=== PATIENT | male | born 1950 | race Caucasian/White ===

== ENCOUNTER → 2021-01-16 | Outpatient (CLI) | payer MEDICARE ==
--- NOTE | 2021-01-23 12:42 | MR ---
EXAMINATION TYPE: MR Prostate wo/w con DATE OF EXAM: 01/16/2021 COMPARISON: None. IMAGE QUALITY: . INDICATION: PSA: ng/ml Recent Biopsy and Date: April 24, 2020. Pathology Report (If Applicable): Adenocarcinoma Prashant score 3+3 = 6 left base, left lateral apex. Minute focus atypical small acinar proliferation left mid and right lateral mid TECHNIQUE: Examination was performed using a 3T MRI without an endorectal coil. Multiparametric imaging was perf ormed with T2 multiplanar sequences, axial diffusion weighted imaging and dynamic contrast enhanced i maging, utilizing 9.5 mL intravenous Gadavist gadolinium contrast. FINDINGS: There is no clinically significant cancer identified. PROSTATE VOLUME: 4.4 cm SI x 3.6 cm AP x 4.6 cm LR Vol= 38.2 cc Predicted PSA: 4.58 Mildly enlarged prostate gland. Peripheral zone within normal limits on ADC mapping. Some heterogenei ty of the transitional zone on T2-weighted images without suspicious hypointense nodules or areas. Prostate capsule is maintained. Seminal vesicles appear within normal limits. Bladder shows mild dist ention with mild trabeculation and mild to minimal wall thickening. No suspicious bowel dilatation. No concerning pelvic fluid collection. Visualized osseous structures are intact. IMPRESSION: A focus of clinically significant cancer is not identified. Highest Assessment Category: 1 MRI Stage: T1c N0 M0 based on review of pelvic images. False negative rates for MRI range from 5-20% depending on risk profile. Assessment Categories: 1 ? Very low (clinically significant cancer is highly unlikely to be present) 2 ? Low (clinically significant cancer is unlikely to be present) 3 ? Intermediate (the presence of clinically significant cancer is equivocal) 4 ? High (clinically significant cancer is likely to be present) 5 ? Very high (clinically significant cancer is highly likely to be present)
== END | disposition home or self-care (01) ==
LOC: RADMRIMAIN 12:42
PROVIDERS: ATTEND Urology
DX: C61 Malignant neoplasm of prostate (principal)
CPT/HCPCS: 72197; A9585

== ENCOUNTER 2021-12-29 11:01 | Inpatient (IN) | payer MEDICARE ==
[2021-12-29 11:48] LABS: Basophils % (A) 0 %; Eosinophils # (A) 0.1 k/uL (0-0.7); Eosinophils % (A) 1 %; HGB 15.2 gm/dL (13.0-17.5); Lymphocytes % (A) 10 %; MCH 28.8 pg (25.0-35.0); MCV 87.4 fL (80.0-100.0); Mean Platelet Volume 7.6; Monocytes # (A) 0.4 k/uL (0-1.0); Monocytes % (A) 4 %; Neutrophils # (A) 8.2 k/uL (1.3-7.7); Neutrophils % (A) 84 %; Platelet Count 221 k/uL (150-450); RBC 5.26 m/uL (4.30-5.90); RDW 13.7 % (11.5-15.5); WBC 9.8 k/uL (3.8-10.6)
[2021-12-29 11:54] LABS: Calcium 9.1 mg/dL (8.4-10.2); INR 0.9 (<1.2); Magnesium 1.9 mg/dL (1.6-2.3); Partial Thromboplastin Time 26.1 sec (22.0-30.0); Potassium 4.5 mmol/L (3.5-5.1); Prothrombin Time 10.1 sec (9.0-12.0); Total Bilirubin 1.1 mg/dL (0.2-1.3); Total Protein 6.9 g/dL (6.3-8.2)
--- NOTE | 2021-12-29 12:18 | XR ---
EXAMINATION TYPE: XR chest 2V DATE OF EXAM: 12/29/2021 COMPARISON: NONE HISTORY: Chest pain. TECHNIQUE: Frontal and lateral views of the chest are obtained. FINDINGS: There is no focal air space opacity, pleural effusion, or pneumothorax seen. The cardiac silhouette size is within normal limits. The osseous structures are intact. IMPRESSION: No acute process.
[2021-12-29] MEDS ORDERED: ASPIRIN 81 MG PO STA (12:38)
[2021-12-29] MEDS ORDERED: MORPHINE SULFATE 2 MG/ML SYRINGE IVP PRN (12:38)
[2021-12-29] MEDS ORDERED: HEPARIN SODIUM 1,000 UN/ML (10ML VL) IV ONE ×2 (12:38→14:31)
[2021-12-29] MEDS ORDERED: PANTOPRAZOLE 40 MG/10 ML VIAL IVP STA (12:42)
[2021-12-29] MEDS ORDERED: ATORVASTATIN 80 MG TAB PO SCH (12:45)
--- NOTE | 2021-12-29 12:47 | ED ---
General Adult HPI - General Chief complaint: Chest Pain Stated complaint: chest pain, nausea, throat feels tight Time Seen by Provider: 12/29/21 12:28 Source: patient, family, RN notes reviewed, old records reviewed Mode of arrival: wheelchair Limitations: no limitations - History of Present Illness Initial comments: 71-year-old male presents for evaluation of chest pain. His symptoms have been present for the past 3 days. Pain is in the center of his chest he describes it is similar to previous gastric reflux symptoms that he's had. He does take omeprazole for this. He's had no diaphoresis. He has no prior history of CAD. He has a nondiabetic, nonsmoker. He has a strong family history of coronary artery disease including his father who at age 37. - Related Data Allergies Allergy/AdvReac Type Severity Reaction Status Date / Time No Known Allergies Allergy Verified 12/29/21 11:10 Review of Systems ROS Statement: Those systems with pertinent positive or pertinent negative responses have been documented in the HPI. ROS Other: All systems not noted in ROS Statement are negative. Past Medical History Past Medical History: Cancer Additional Past Medical History / Comment(s): prostate Cancer April 2020 History of Any Multi-Drug Resistant Organisms: None Reported Past Surgical History: No Surgical Hx Reported Past Psychological History: No Psychological Hx Reported Smoking Status: Never smoker Past Alcohol Use History: None Reported Past Drug Use History: None Reported General Exam Limitations: no limitations General appearance: alert, in no apparent distress Head exam: Present: atraumatic, normocephalic Eye exam: Present: normal appearance, PERRL ENT exam: Present: normal exam Neck exam: Present: normal inspection. Absent: tenderness, meningismus Respiratory exam: Present: normal lung sounds bilaterally. Absent: respiratory distress, wheezes Cardiovascular Exam: Present: regular rate, normal rhythm GI/Abdominal exam: Present: soft. Absent: distended, tenderness, guarding, rebound Extremities exam: Present: normal inspection, normal capillary refill. Absent: pedal edema Neurological exam: Present: alert, oriented X3, CN II-XII intact. Absent: motor sensory deficit Psychiatric exam: Present: normal affect, normal mood Skin exam: Present: warm, dry, intact. Absent: cyanosis, diaphoretic Course Vital Signs 12/29/21 11:04 Temperature 97.5 F L Pulse Rate 55 L Respiratory 18 Rate Blood Pressure 134/72 O2 Sat by Pulse 99 Oximetry EKG Findings - EKG Comments: EKG Findings:: EKG obtained at 1114 showing sinus bradycardia no ST segment elevation, rate of 57, OR interval 170, QRS duration 97, QTC 385. Repeat EKG at 1240 showing sinus rhythm with sinus arrhythmia rate of 62, there is some subtle depression in the lateral precordial leads. No ST segment elevation. OR interval 159, QRS duration 103, QTC 397. Medical Decision Making - Medical Decision Making 71-year-old male presenting with central chest pain for the past 3 days. EKG is sinus without ST segment elevation. Symptoms have been constant over the past 3 days. He has a normal CBC. Mild elevation in serum creatinine. He has a significantly elevated troponin at 6. He is having continued pain in the center of his chest although this is not severe. Chest x-ray is clear. He is given aspirin and started on heparin in the emergency department. I did discuss case with Dr. Velarde who is able to evaluate the patient emergency department. The patient will be admitted to [facility]. - Lab Data Result diagrams: 12/29/21 11:23 12/29/21 11:23 Lab Results 12/29/21 12/29/21 12/29/21 Range/Units 11:23 11:23 11:23 WBC 9.8 (3.8-10.6) k/uL RBC 5.26 (4.30-5.90) m/uL Hgb 15.2 (13.0-17.5) gm/dL Hct 46.0 (39.0-53.0) % MCV 87.4 (80.0-100.0) fL MCH 28.8 (25.0-35.0) pg MCHC 33.0 (31.0-37.0) g/dL RDW 13.7 (11.5-15.5) % Plt Count 221 (150-450) k/uL MPV 7.6 Neutrophils % 84 % Lymphocytes % 10 % Monocytes % 4 % Eosinophils % 1 % Basophils % 0 % Neutrophils # 8.2 H (1.3-7.7) k/uL Lymphocytes # 1.0 (1.0-4.8) k/uL Monocytes # 0.4 (0-1.0) k/uL Eosinophils # 0.1 (0-0.7) k/uL Basophils # 0.0 (0-0.2) k/uL PT 10.1 (9.0-12.0) sec INR 0.9 (<1.2) APTT 26.1 (22.0-30.0) sec Sodium 134 L (137-145) mmol/L Potassium 4.5 (3.5-5.1) mmol/L Chloride 104 (98-107) mmol/L Carbon Dioxide 25 (22-30) mmol/L Anion Gap 5 mmol/L BUN 15 (9-20) mg/dL Creatinine 1.39 H (0.66-1.25) mg/dL Est GFR (CKD-EPI)AfAm 59 (>60 ml/min/1.73 sqM) Est GFR (CKD-EPI)NonAf 51 (>60 ml/min/1.73 sqM) Glucose 108 H (74-99) mg/dL Calcium 9.1 (8.4-10.2) mg/dL Magnesium 1.9 (1.6-2.3) mg/dL Total Bilirubin 1.1 (0.2-1.3) mg/dL AST 86 H (17-59) U/L ALT 23 (4-49) U/L Alkaline Phosphatase 64 (38-126) U/L Troponin I (0.000-0.034) ng/mL Total Protein 6.9 (6.3-8.2) g/dL Albumin 4.0 (3.5-5.0) g/dL 12/29/21 Range/Units 11:23 WBC (3.8-10.6) k/uL RBC (4.30-5.90) m/uL Hgb (13.0-17.5) gm/dL Hct (39.0-53.0) % MCV (80.0-100.0) fL MCH (25.0-35.0) pg MCHC (31.0-37.0) g/dL RDW (11.5-15.5) % Plt Count (150-450) k/uL MPV Neutrophils % % Lymphocytes % % Monocytes % % Eosinophils % % Basophils % % Neutrophils # (1.3-7.7) k/uL Lymphocytes # (1.0-4.8) k/uL Monocytes # (0-1.0) k/uL Eosinophils # (0-0.7) k/uL Basophils # (0-0.2) k/uL PT (9.0-12.0) sec INR (<1.2) APTT (22.0-30.0) sec Sodium (137-145) mmol/L Potassium (3.5-5.1) mmol/L Chloride (98-107) mmol/L Carbon Dioxide (22-30) mmol/L Anion Gap mmol/L BUN (9-20) mg/dL Creatinine (0.66-1.25) mg/dL Est GFR (CKD-EPI)AfAm (>60 ml/min/1.73 sqM) Est GFR (CKD-EPI)NonAf (>60 ml/min/1.73 sqM) Glucose (74-99) mg/dL Calcium (8.4-10.2) mg/dL Magnesium (1.6-2.3) mg/dL Total Bilirubin (0.2-1.3) mg/dL AST (17-59) U/L ALT (4-49) U/L Alkaline Phosphatase (38-126) U/L Troponin I 6.390 H* (0.000-0.034) ng/mL Total Protein (6.3-8.2) g/dL Albumin (3.5-5.0) g/dL Critical Care Time Critical Care Time: Yes Total Critical Care Time: 35 Disposition Clinical Impression: Acute non-ST elevation myocardial infarction (NSTEMI) Disposition: ADMITTED IP TO THIS [facility] Condition: Stable Is patient prescribed a controlled substance at d/c from ED?: No Referrals: None,Stated [Primary Care Provider] - 1-2 days Decision to Admit Reason: Admit from EC Decision Date: 12/29/21 Decision Time: 12:43
[2021-12-29] MEDS ORDERED: NITROGLYCERIN SL TABS 0.4 MG TAB SUBLINGUAL STA (13:00)
[2021-12-29] MEDS ORDERED: SODIUM CHLORIDE 0.9% 1,000 ML IV ONE ×2 (13:05→14:29)
[2021-12-29] MEDS: HEPARIN SOD,PORK IN 0.45% NACL 25,000 UNIT in 0.45% NACL 1 250ML.BAG IV SCH (13:10)
--- NOTE | 2021-12-29 13:13 | P.CRDCN ---
History of Present Illness History of present illness: HISTORY OF PRESENTING ILLNESS This is a pleasant 71-year-old with past medical history significant for a history of coronary artery disease, prostate cancer not requiring any treatment who presents secondary chest pain. He states he was having some dental work over the last week and had a dental infection approximately a week ago and was having more throat and jaw discomfort. He then had some chest discomfort which felt more like heartburn and therefore waited for approximately a day and it was somewhat off and on. Patient then noted some nausea and it had not improved and therefore presented to emergency department. Blood workup showed elevated troponin at 6, Normal hemoglobin, creatinine 1.39, AST 86, ALT 23. EKG shows sinus rhythm with ST depressions in the inferior lateral leads. REVIEW OF SYSTEMS At the time of my exam: CONSTITUTIONAL: Denies fever or chills. CARDIOVASCULAR: +chest pain, mild shortness of breath, no orthopnea, PND or palpitations. RESPIRATORY: Denies cough. GASTROINTESTINAL: Denies abdominal pain, diarrhea, constipation, nausea or vomiting. MUSCULOSKELETAL: Denies myalgias. NEUROLOGIC: Denies numbness, tingling or weakness. ENDOCRINE: Denies fatigue, weight change, polydipsia or polyurina. GENITOURINARY: Denies burning, hematuria or urgency with micturation. HEMATOLOGIC: Denies history of anemia or bleeding. PHYSICAL EXAMINATION Vital signs reviewed. CONSTITUTIONAL: No apparent distress. HEENT: Head is normocephalic. Pupils are equal, round. Sclerae anicteric. Mucous membranes of the mouth are moist. No JVD. No carotid bruit. CHEST EXAMINATION: Lungs are clear to auscultation. No chest wall tenderness is noted on palpation or with deep breathing. HEART EXAMINATION: Regular rate and rhythm. S1, S2 heard. No murmurs, gallops or rub. ABDOMEN: Soft, nontender. Positive bowel sounds. EXTREMITIES: 2+ peripheral pulses, no lower extremity edema and no calf tenderness. NEUROLOGIC EXAMINATION: Patient is awake, alert and oriented x3. ASSESSMENT 1. Non-STEMI with typical features, appears consistent with type I mechanism 2. Family history CAD 3. Chronic kidney disease 4. Prostate cancer not undergoing treatment, appears mild PLAN Aspirin, heparin, high intensity statin. Hold beta margarita for now given hypotension and bradycardia. We discussed with the ER staff and patient is to receive nitroglycerin and if pain is not improved we will take patient urgently to the catheterization lab. Check 2-D echo. Further recommendations to follow. Past Medical History Past Medical History: Cancer Additional Past Medical History / Comment(s): prostate Cancer April 2020 History of Any Multi-Drug Resistant Organisms: None Reported Past Surgical History: No Surgical Hx Reported Past Psychological History: No Psychological Hx Reported Smoking Status: Never smoker Past Alcohol Use History: None Reported Past Drug Use History: None Reported Medications and Allergies Allergies Allergy/AdvReac Type Severity Reaction Status Date / Time No Known Allergies Allergy Verified 12/29/21 11:10 Physical Exam Vitals: Vital Signs Temp Pulse Resp BP Pulse Ox 12/29/21 11:04 97.5 F L 55 L 18 134/72 99 Intake and Output 12/28/21 12/29/21 12/29/21 22:59 06:59 14:59 Other: Weight 90.718 kg Results 12/29/21 11:23 12/29/21 11:23 Cardiac Enzymes 12/29/21 12/29/21 Range/Units 11:23 11:23 AST 86 H (17-59) U/L Troponin I 6.390 H* (0.000-0.034) ng/mL Coagulation 12/29/21 Range/Units 11:23 PT 10.1 (9.0-12.0) sec APTT 26.1 (22.0-30.0) sec CBC 12/29/21 Range/Units 11:23 WBC 9.8 (3.8-10.6) k/uL RBC 5.26 (4.30-5.90) m/uL Hgb 15.2 (13.0-17.5) gm/dL Hct 46.0 (39.0-53.0) % Plt Count 221 (150-450) k/uL Comprehensive Metabolic Panel 12/29/21 Range/Units 11:23 Sodium 134 L (137-145) mmol/L Potassium 4.5 (3.5-5.1) mmol/L Chloride 104 (98-107) mmol/L Carbon Dioxide 25 (22-30) mmol/L BUN 15 (9-20) mg/dL Creatinine 1.39 H (0.66-1.25) mg/dL Glucose 108 H (74-99) mg/dL Calcium 9.1 (8.4-10.2) mg/dL AST 86 H (17-59) U/L ALT 23 (4-49) U/L Alkaline Phosphatase 64 (38-126) U/L Total Protein 6.9 (6.3-8.2) g/dL Albumin 4.0 (3.5-5.0) g/dL Current Medications Generic Name Dose Route Start Last Admin Trade Name Freq PRN Reason Stop Dose Admin Aspirin 325 mg 12/30/21 09:00 Aspirin 325 Mg Tab PO DAILY [facility] Atorvastatin Calcium 80 mg 12/29/21 12:45 Atorvastatin 80 Mg Tab PO DAILY [facility] Heparin Sodium/Sodium Chloride 250 mls @ 10.006 mls/hr 12/29/21 12:45 25,000 unit/ Sodium Chloride IV .Q24H [facility] Protocol 11.03 UNITS/KG/HR Morphine Sulfate 2 mg 12/29/21 12:38 Morphine Sulfate 2 Mg/Ml Syringe IVP Q5M PRN Chest Pain Nitroglycerin 1 inch 12/29/21 18:00 Nitroglycerin Oint 1 Inch/Gm Packet TOPICAL Q6HR [facility] Pantoprazole Sodium 40 mg 12/29/21 21:00 Pantoprazole 40 Mg/10 Ml Vial IVP BID [facility] Intake and Output 12/28/21 12/29/21 12/29/21 22:59 06:59 14:59 Other: Weight 90.718 kg Patient Weight 12/30/21 06:59 Weight 90.718 kg 12/29/21 11:23 12/29/21 11:23
[2021-12-29] MEDS ORDERED: LIDOCAINE 1% INJ 10MG/ML (20 ML MDV) ONE (13:50)
[2021-12-29] MEDS ORDERED: VERAPAMIL 2.5 MG/ML 2 ML AMP ONE (13:50)
[2021-12-29] MEDS ORDERED: fentaNYL (PF) 50 MCG/ML 2 ML AMP ONE (13:54)
[2021-12-29] MEDS ORDERED: HEPARIN SODIUM 1,000 UN/ML (10ML VL) ONE (13:54)
[2021-12-29] MEDS ORDERED: LIDOCAINE 1% INJ 10MG/ML (20 ML MDV) SQ ONE ×2 (14:22→14:23)
[2021-12-29] MEDS ORDERED: fentaNYL (PF) 50 MCG/ML 2 ML AMP IVP ONE (14:22)
[2021-12-29] MEDS ORDERED: MIDAZOLAM HCL 10 MG/10 ML VIAL IVP ONE (14:22)
[2021-12-29] MEDS ORDERED: VERAPAMIL SYRINGE (5 MG/10 ML) INTRAARTER ONE (14:26)
[2021-12-29] MEDS ORDERED: IOPAMIDOL-370 125ML BTL INJ ONE (14:39)
--- NOTE | 2021-12-29 14:46 | P.CARDCATH ---
Description of Procedure: PROCEDURES PERFORMED: Left heart catheterization, bilateral coronary angiography, left ventriculography INDICATION: NSTEMI CONSENT:I have discussed the risks, benefits and alternative therapies for the above-mentioned procedure and for both sedation/analgesia as well as necessary blood product administration, if indicated, as they pertain to this patient. The patient has indicated understanding and acceptance of the risks and procedures discussed. PROCEDURE: After the risks, benefits and alternatives of the above mentioned pr ocedure explained in detail with the patient, informed consent was obtained. Patient was taken to the catheterization lab and prepped and draped in usual fashion. 1% lidocaine was used to anesthetize the right radial artery. A 6- [place]i sheath was placed in the right radial artery using modified Seldinger technique. Left coronary angiography was performed with a 5-B[place]i JL 3.5 catheter and right coronary angiography was performed with a 5-B[place]i JR5 catheter in various views. A 5-B[place]i FR5 catheter was inserted into the left ventricle and pressure measurements were obtained. Left ventriculography was performed with a 6-B[place]i pigtail catheter and power injection in the CAMILO projection. The right radial sheath was removed and a TR band was placed with hemostasis achieved. The patient tolerated the procedure well. Patient was transported back to the post catheterization holding area in stable condition. Conscious Sedation: Patient was monitored under the direct supervision of vision of myself for conscious sedation using Versed and fentanyl for a total duration of 19 minutes HEMODYNAMICS: Her: 102/76 LV: 111/11, LVEDP 24 Left ventriculogram: LV function is preserved with ejection fraction 55-60% without wall motion abnormalities. No mitral regurgitation, no pullback across the aortic valve. SELECTIVE CORONARY ARTERIOGRAPHY: LEFT MAIN: The left main is a large caliber vessel which bifurcates into the LAD and circumflex. There is no significant stenosis. LEFT ANTERIOR DESCENDING CORONARY ARTERY: LAD is a large caliber vessel which wraps around to the apex. There is no significant stenosis. LEFT CIRCUMFLEX CORONARY ARTERY: Left circumflex is a moderate caliber vessel without significant stenosis. RIGHT CORONARY ARTERY: The right coronary artery is a large caliber vessel which gives off a PDA and PLV branch and is the dominant vessel. There is no significant stenosis. FINAL IMPRESSION: 1. Normal coronary arteries as described above. 2. Elevated left sided filling pressures 3. Normal left ventricular ejection fraction 55-60% PLAN: 1. Aggressive risk factor modification per most recent ACC/AHA guidelines. 2. Evaluate for possible myocarditis, full 2-D echo.
[2021-12-29 15:10] LABS: Glucose,Whole Blood 107 mg/dL (75-99)
[2021-12-29] MEDS: METOPROLOL SUCCINATE (ER) 25 MG TAB.ER.24H PO SCH (16:49)
[2021-12-29] MEDS ORDERED: ONDANSETRON 4 MG/2 ML VIAL IVP PRN (17:50)
[2021-12-29] MEDS: NITROGLYCERIN OINT 1 INCH/GM PACKET TOPICAL SCH (17:53)
[2021-12-29 18:27] LABS: Influenza A Not Detected (Not Detectd); Influenza B Not Detected (Not Detectd)
[2021-12-29 19:32] LABS: C Reactive Protein 0.5 mg/dL (<1.0)
[2021-12-29] MEDS: PANTOPRAZOLE 40 MG/10 ML VIAL IVP SCH (21:05)
--- NOTE | 2021-12-29 22:01 | P.HPIM ---
History of Present Illness H&P Date: 12/29/21 Chief Complaint: chest pain Patient is 71-year-old male with a known history of prostate cancer diagnosed in April 2020 status post surgery and currently on follow-up with urology, no prior history of smoking, GERD presents to ER with complaints of chest pain. 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 Today morning he is still having the pain/discomfort retrosternal region and felt like heartburn and heavy feeling. Due to worsening symptoms patient presented to ER. Associate with nausea no ulcers or vomiting. No diaphoresis. No headache or dizziness or lightheadedness. Patient had root canal dental work done about 1 week ago. Postprocedure patient was 7-day course of moxifloxacin which she took for 5 days and quit yesterday. About 3 days ago she felt very weak while he was standing outside. Denied any complaints of palpitations. No leg swelling. No complaints of shortness of breath. No cough or sputum production. No fever or chills. Patient is also hypotensive on admission with blood pressure 96/65. Patient states that his blood pressure has not been low before. EKG on admission showed ST depression in the inferior lateral leads. Laboratory data showed sodium 134 potassium 4.5 chloride 104 BUN 15 and creatinine 1.39 AST 86 ALT 23 and alk phos 64 troponin 0.39 proBNP 854 and TSH 1.160 COVID-19 PCR not detected. Patient was taken to cardiac catheterization due to non-ST elevated DC and showed normal coronaries and elevated left-sided filling pressures. Ejection fraction 55 to 60%.. Review of Systems Constitutional: Patient denies any fever or chills . No generalized weakness or weight loss. Abdomen: Patient denied nausea vomiting and diarrhea and abdominal pain. Cardiovascular: Patient denies any chest pain or short of breath no palpitations. Respiratory: patient denied any cough or sputum production. No shortness of breath Neurologic: Patient denied any numbness or tingling headache. Musculoskeletal: Patient denies any complaints of joint swelling or deformity. Skin: Negative Psychiatric: Negative Endocrine: No heat or cold intolerance. No recent weight gain. Genitourinary: No dysuria or hematuria. All other 14 point ROS negative except the above Past Medical History Past Medical History: Cancer, Prostate Disorder Additional Past Medical History / Comment(s): prostate Cancer April 2020 History of Any Multi-Drug Resistant Organisms: None Reported Past Surgical History: No Surgical Hx Reported Past Psychological History: No Psychological Hx Reported Smoking Status: Never smoker Past Alcohol Use History: None Reported Past Drug Use History: None Reported Medications and Allergies Home Medications Medication Instructions Recorded Confirmed Type Ascorbic Acid [Vitamin C] 500 mg PO DAILY 12/29/21 12/29/21 History Ginkgo Biloba 500 mg PO DAILY 12/29/21 12/29/21 History Glucosamine HCl/Chondroitin Wetzel 1 cap PO DAILY 12/29/21 12/29/21 History [Glucosamine-Chondroitin Cap] Ibuprofen [Motrin Ib] 200 mg PO Q8H PRN 12/29/21 12/29/21 History Omeprazole 20 mg PO DAILY 12/29/21 12/29/21 History Allergies Allergy/AdvReac Type Severity Reaction Status Date / Time No Known Allergies Allergy Verified 12/29/21 13:33 Physical Exam Vitals: Vital Signs Temp Pulse Resp BP Pulse Ox 12/29/21 13:45 61 18 95/54 100 12/29/21 13:32 61 18 93/57 100 12/29/21 13:30 77 20 116/84 95 12/29/21 13:22 66 23 100/60 100 12/29/21 13:17 70 24 120/94 97 12/29/21 13:15 62 16 98/76 96 12/29/21 13:13 56 L 16 96/65 98 12/29/21 11:04 97.5 F L 55 L 18 134/72 99 Intake and Output 12/29/21 12/29/21 12/29/21 06:59 14:59 22:59 Intake Total 50 24.515 Balance 50 24.515 Intake: IV 50 Intake, IV Titration 0 24.515 Amount Heparin Sod,Pork in 0.45% 24.515 NaCl 25,000 unit In 0.45 % NaCl 1 250ml.bag @ 11. 03 UNITS/KG/HR 10.006 mls /hr IV .Q24H [facility] Rx#: [id number] Sodium Chloride 0.9% 1, 0 000 ml @ 999 mls/hr IV . Q1H1M [facility] Rx#:[id number] Other: Weight 90.718 kg PHYSICAL EXAMINATION: Patient is lying in the bed comfortably, no acute distress, awake alert and oriented.. HEENT: Normocephalic. Neck is supple. Pupils reactive. Nostrils clear. Oral cavity is moist. Neck reveals no JVD, carotid bruits, or thyromegaly. CHEST EXAMINATION: Trachea is central. Symmetrical expansion. Lung knott clear to auscultation and percussion. CARDIAC: Normal S1, S2 with no gallops. No murmurs ABDOMEN: Soft. Bowel sounds normal. No organomegaly. No abdominal bruits. Extremities: reveal no edema. No clubbing or cyanosis Neurologically awake, alert, oriented x3 with well-coordinated movements. No focal deficits noted Skin: No rash or skin lesions. Psychiatric: Cooperative. Nonsuicidal Musculoskeletal: No joint swelling or deformity. Normal range of motion. Results CBC & Chem 7: 12/29/21 11:23 12/29/21 11:23 Labs: Abnormal Lab Results - Last 24 Hours (Table) 12/29/21 12/29/21 12/29/21 Range/Units 11:23 11:23 11:23 Neutrophils # 8.2 H (1.3-7.7) k/uL Sodium 134 L (137-145) mmol/L Creatinine 1.39 H (0.66-1.25) mg/dL Glucose 108 H (74-99) mg/dL POC Glucose (mg/dL) (75-99) mg/dL AST 86 H (17-59) U/L Troponin I 6.390 H* (0.000-0.034) ng/mL 12/29/21 Range/Units 15:09 Neutrophils # (1.3-7.7) k/uL Sodium (137-145) mmol/L Creatinine (0.66-1.25) mg/dL Glucose (74-99) mg/dL POC Glucose (mg/dL) 107 H (75-99) mg/dL AST (17-59) U/L Troponin I (0.000-0.034) ng/mL Thrombosis Risk Factor Assmnt - DVT/VTE Prophylaxis DVT/VTE Prophylaxis: Pharmacologic Prophylaxis ordered Assessment and Plan Assessment: Acute non-ST elevated DC with elevated troponin level. Status post cardiac catheterization showed normal coronaries. Elevated left-sided filling pressures. Recent history of root canal dental procedure followed by 7-day course of moxifloxacin which he took for 5 days.. Acute kidney injury likely prerenal Hypovolemic hyponatremia Mild elevated AST level GERD No prior history of smoking Prostate cancer with history of surgery and biopsy and is on follow-up with urology as an outpatient. Currently not on any medications. DVT prophylaxis patient is on heparin drip. GI prophylaxis Protonix. Plan: Patient will be current on telemetry monitoring. Status post cardiac catheterization showed normal coronaries. Follow-up 2D echocardiogram report and possible myocarditis is being considered. TSH, CRP and blood cultures will be ordered. Follow-up COVID-19 PCR. Cardiology is on board. Currently patient denies any complaints of chest discomfort. Plan with PPI. Patient is being monitored in the ICU. Time with Patient: Greater than 30
[2021-12-30] MEDS: NITROGLYCERIN OINT 1 INCH/GM PACKET TOPICAL SCH ×2 (01:21→06:26)
[2021-12-30 07:36] LABS: Basophils % (A) 0 %; Eosinophils % (A) 0 %; HCT 40.3 % (39.0-53.0); HGB 13.2 gm/dL (13.0-17.5); Lymphocytes % (A) 9 %; MCH 29.1 pg (25.0-35.0); MCHC 32.8 g/dL (31.0-37.0); MCV 88.6 fL (80.0-100.0); Mean Platelet Volume 8.1; Monocytes # (A) 0.7 k/uL (0-1.0); Monocytes % (A) 6 %; Neutrophils # (A) 9.4 k/uL (1.3-7.7); Neutrophils % (A) 84 %; Platelet Count 183 k/uL (150-450); RBC 4.55 m/uL (4.30-5.90); RDW 13.4 % (11.5-15.5); WBC 11.2 k/uL (3.8-10.6)
[2021-12-30] MEDS ORDERED: FUROSEMIDE 20 MG TAB PO STA (07:41)
--- NOTE | 2021-12-30 07:41 | P.PN ---
Subjective HISTORY OF PRESENTING ILLNESS This is a pleasant 71-year-old with past medical history significant for a history of coronary artery disease, prostate cancer not requiring any treatment who presents secondary chest pain. He states he was having some dental work over the last week and had a dental infection approximately a week ago and was having more throat and jaw discomfort. He then had some chest discomfort which felt more like heartburn and therefore waited for approximately a day and it was somewhat off and on. Patient then noted some nausea and it had not improved and therefore presented to emergency department. Blood workup showed elevated troponin at 6, Normal hemoglobin, creatinine 1.39, AST 86, ALT 23. EKG shows sinus rhythm with ST depressions in the inferior lateral leads. 12/30 Patient seen and examined. Patient states he did have 1 more brief episode of chest discomfort however predominantly has been doing very well. He underwent heart catheterization yesterday which showed normal coronary arteries with normal ejection fraction and elevated LVEDP at 24. We will place him on Lasix for one dose although he is not complaining of much shortness breath. PHYSICAL EXAMINATION Vital signs reviewed. CONSTITUTIONAL: No apparent distress. HEENT: Head is normocephalic. Pupils are equal, round. Sclerae anicteric. Mucous membranes of the mouth are moist. No JVD. No carotid bruit. CHEST EXAMINATION: Lungs are clear to auscultation. No chest wall tenderness is noted on palpation or with deep breathing. HEART EXAMINATION: Regular rate and rhythm. S1, S2 heard. No murmurs, gallops or rub. ABDOMEN: Soft, nontender. Positive bowel sounds. EXTREMITIES: 2+ peripheral pulses, no lower extremity edema and no calf te nderness. NEUROLOGIC EXAMINATION: Patient is awake, alert and oriented x3. ASSESSMENT 1. Non-STEMI consideration of myocarditis 2. Family history CAD 3. Chronic kidney disease 4. Prostate cancer not undergoing treatment, appears mild 5. Chest pain with angina-type symptoms improved with nitro. May be related to microvascular dysfunction, myocarditis. Predominantly improved PLAN Continue aspirin, statin. Heart catheterization shows normal coronary arteries and left ventriculogram shows preserved EF. Check formal 2-D echo to evaluate for any mild wall motion abnormalities which may go along with myocarditis. Suspicion of myocarditis and this may be evaluated with a outpatient cardiac MRI. Mildly elevated LVEDP and we will give 1 dose of Lasix. Hopeful discharge 12/31 if remains stable. Continue with low dose metoprolol for myocarditis. Objective - Vital Signs Vital signs: Vital Signs Temp 98.4 F 12/29/21 16:00 Pulse 64 12/30/21 04:00 Resp 15 12/30/21 04:00 BP 115/67 12/30/21 04:00 Pulse Ox 94 L 12/30/21 04:00 Intake & Output 12/29/21 12/30/21 12/30/21 18:59 06:59 18:59 Intake Total 74.515 300 Output Total 285 Balance 74.515 15 Weight 90.718 kg Intake: IV 50 100 cefTRIAXone 1 gm In 100 Sodium Chloride 0.9% 50 ml @ 100 mls/hr IVPB ONCE ONE Rx#:[id number] Intake, IV Titration 24.515 Amount Heparin Sod,Pork in 0.45% 24.515 NaCl 25,000 unit In 0.45 % NaCl 1 250ml.bag @ 11. 03 UNITS/KG/HR 10.006 mls /hr IV .Q24H [facility] Rx#: [id number] Sodium Chloride 0.9% 1, 0 000 ml @ 999 mls/hr IV . Q1H1M ONE Rx#:[id number] Oral 200 Output: Urine 285 - Labs CBC & Chem 7: 12/30/21 07:10 12/29/21 11:23 Labs: Abnormal Lab Results - Last 24 Hours (Table) 12/29/21 12/29/21 12/29/21 Range/Units 11:23 11:23 11:23 WBC (3.8-10.6) k/uL Neutrophils # 8.2 H (1.3-7.7) k/uL Sodium 134 L (137-145) mmol/L Creatinine 1.39 H (0.66-1.25) mg/dL Glucose 108 H (74-99) mg/dL POC Glucose (mg/dL) (75-99) mg/dL AST 86 H (17-59) U/L Troponin I 6.390 H* (0.000-0.034) ng/mL 12/29/21 12/29/21 12/29/21 Range/Units 15:09 15:35 18:48 WBC (3.8-10.6) k/uL Neutrophils # (1.3-7.7) k/uL Sodium (137-145) mmol/L Creatinine (0.66-1.25) mg/dL Glucose (74-99) mg/dL POC Glucose (mg/dL) 107 H (75-99) mg/dL AST (17-59) U/L Troponin I 7.200 H* 7.240 H* (0.000-0.034) ng/mL 12/30/21 Range/Units 07:10 WBC 11.2 H (3.8-10.6) k/uL Neutrophils # 9.4 H (1.3-7.7) k/uL Sodium (137-145) mmol/L Creatinine (0.66-1.25) mg/dL Glucose (74-99) mg/dL POC Glucose (mg/dL) (75-99) mg/dL AST (17-59) U/L Troponin I (0.000-0.034) ng/mL
[2021-12-30 07:57] LABS: African American GFR (CKD) 55 (>60 ml/min/1.73 sqM); Anion Gap 4 mmol/L; Blood Urea Nitrogen 16 mg/dL (9-20); Calcium 8.6 mg/dL (8.4-10.2); Carbon Dioxide 25 mmol/L (22-30); Chloride 104 mmol/L (98-107); Glucose 111 mg/dL (74-99); Non-African American GFR(CKD) 48 (>60 ml/min/1.73 sqM); Potassium 4.4 mmol/L (3.5-5.1); Sodium 133 mmol/L (137-145)
[2021-12-30] MEDS ORDERED: ASPIRIN 325 MG TAB PO SCH (09:00)
[2021-12-30] MEDS ORDERED: NON FORMULARY DRUG (Glucosamine Hcl/Chondroitin Su [Glucosamine-Chondroitin Cap] 1 EACH Ca PO SCH (09:00)
[2021-12-30] MEDS: METOPROLOL SUCCINATE (ER) 25 MG TAB.ER.24H PO SCH (09:20)
[2021-12-30] MEDS: PANTOPRAZOLE 40 MG/10 ML VIAL IVP SCH (09:20)
[2021-12-30] MEDS: HEPARIN SOD,PORK IN 0.45% NACL 25,000 UNIT in 0.45% NACL 1 250ML.BAG IV SCH (11:01)
[2021-12-30 12:48] LABS: Chol/HDL Ratio 2.65 Ratio; LDL Cholesterol,Calculated 95.7 mg/dL (0.0-131.0); VLDL Calculation 12.56 mg/dL (5.00-40.00)
[2021-12-30] MEDS ORDERED: ATORVASTATIN 80 MG TAB PO SCH (21:00)
[2021-12-30] MEDS: PANTOPRAZOLE 40 MG TABLET PO SCH (21:06)
--- NOTE | 2021-12-30 23:46 | P.PN ---
Subjective Progress Note Date: 12/30/21 Patient is 71-year-old male with a known history of prostate cancer diagnosed in April 2020 status post surgery and currently on follow-up with urology, no prior history of smoking, GERD presents to ER with complaints of chest pain. 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 Today morning he is still having the pain/discomfort retrosternal region and felt like heartburn and heavy feeling. Due to worsening symptoms patient presented to ER. Associate with nausea no ulcers or vomiting. No diaphoresis. No headache or dizziness or lightheadedness. Patient had root canal dental work done about 1 week ago. Postprocedure patient was 7-day course of moxifloxacin which she took for 5 days and quit yesterday. About 3 days ago she felt very weak while he was standing outside. Denied any complaints of palpitations. No leg swelling. No complaints of shortness of breath. No cough or sputum production. No fever or chills. Patient is also hypotensive on admission with blood pressure 96/65. Patient states that his blood pressure has not been low before. EKG on admission showed ST depression in the inferior lateral leads. Laboratory data showed sodium 134 potassium 4.5 chloride 104 BUN 15 and creatinine 1.39 AST 86 ALT 23 and alk phos 64 troponin 0.39 proBNP 854 and TSH 1.160 COVID-19 PCR not detected. Patient was taken to cardiac catheterization due to non-ST elevated ME and showed normal coronaries and elevated left-sided filling pressures. Ejection fraction 55 to 60%.. 12/30/2021 Patient is status post cardiac catheterization found to be normal coronaries. Patient is in the MICU. Resting in the bed comfortably. Awake alert and oriented x3. No cough or sputum production. No complaints of chest pain or shortness of breath. No fever no chills. No headache or dizziness or lightheadedness. Laboratory data showed WBC 11.2 hemoglobin 13.1 platelets 183 sodium 133 potassium 4.4 chloride 104 BUN 16 and creatinine increasing to 1.47 LDL 95.7. COVID-19 PCR not detected. TSH 1.16 and CRP level is 0.5. Cardiology is on board. Patient is being continued on aspirin and metoprolol and statins.. Current medications reviewed. Objective - Vital Signs Vital signs: Vital Signs Temp 98.1 F 12/30/21 16:00 Pulse 60 12/30/21 16:00 Resp 10 L 12/30/21 16:00 BP 106/53 12/30/21 16:00 Pulse Ox 97 12/30/21 16:00 Intake & Output 12/29/21 12/30/21 12/30/21 18:59 06:59 18:59 Intake Total 74.515 300 120 Output Total 285 575 Balance 74.515 15 -455 Weight 90.718 kg 90.9 kg Intake: IV 50 100 20 cefTRIAXone 1 gm In 100 20 Sodium Chloride 0.9% 50 ml @ 100 mls/hr IVPB ONCE ONE Rx#:[id number] Intake, IV Titration 24.515 Amount Heparin Sod,Pork in 0.45% 24.515 NaCl 25,000 unit In 0.45 % NaCl 1 250ml.bag @ 11. 03 UNITS/KG/HR 10.006 mls /hr IV .Q24H [facility] Rx#: [id number] Sodium Chloride 0.9% 1, 0 000 ml @ 999 mls/hr IV . Q1H1M ONE Rx#:[id number] Oral 200 100 Output: Urine 285 575 - Exam PHYSICAL EXAMINATION: Patient is lying in the bed comfortably, no acute distress, awake alert and or iented.. HEENT: Normocephalic. Neck is supple. Pupils reactive. Nostrils clear. Oral cavity is moist. Neck reveals no JVD, carotid bruits, or thyromegaly. CHEST EXAMINATION: Trachea is central. Symmetrical expansion. Lung knott clear to auscultation and percussion. CARDIAC: Normal S1, S2 with no gallops. No murmurs ABDOMEN: Soft. Bowel sounds normal. No organomegaly. No abdominal bruits. Extremities: reveal no edema. No clubbing or cyanosis Neurologically awake, alert, oriented x3 with well-coordinated movements. No focal deficits noted Skin: No rash or skin lesions. Psychiatric: Cooperative. Nonsuicidal Musculoskeletal: No joint swelling or deformity. Normal range of motion. - Labs CBC & Chem 7: 12/30/21 07:10 12/30/21 07:10 Labs: Abnormal Lab Results - Last 24 Hours (Table) 12/29/21 12/30/21 12/30/21 Range/Units 18:48 07:10 07:10 WBC 11.2 H (3.8-10.6) k/uL Neutrophils # 9.4 H (1.3-7.7) k/uL Sodium 133 L (137-145) mmol/L Creatinine 1.47 H (0.66-1.25) mg/dL Glucose 111 H (74-99) mg/dL Troponin I 7.240 H* (0.000-0.034) ng/mL HDL Cholesterol 65.70 H (40.00-60.00) mg/dL Assessment and Plan Assessment: Acute non-ST elevated ME with elevated troponin level. Status post cardiac catheterization showed normal coronaries. Elevated left-sided filling pressures. Recent history of root canal dental procedure followed by 7-day course of moxifloxacin which he took for 5 days.. Acute kidney injury likely prerenal Hypovolemic hyponatremia Mild elevated AST level GERD No prior history of smoking Prostate cancer with history of surgery and biopsy and is on follow-up with urology as an outpatient. Currently not on any medications. DVT prophylaxis patient is on heparin drip. GI prophylaxis Protonix. Plan: Patient will be current on telemetry monitoring. Status post cardiac catheterization showed normal coronaries. Follow-up 2D echocardiogram report and possible myocarditis is being considered. TSH, CRP WNL. negative COVID-19 PCR. Cardiology is on board. Currently patient denies any complaints of chest discomfort. Plan with PPI. c/w asa and BB ans statins. Patient is being monitored in the ICU. Time with Patient: Greater than 30
[2021-12-31 05:55] LABS: Basophils % (A) 0 %; Eosinophils % (A) 0 %; Lymphocytes # (A) 1.4 k/uL (1.0-4.8); Lymphocytes % (A) 14 %; MCH 28.6 pg (25.0-35.0); MCHC 32.4 g/dL (31.0-37.0); MCV 88.2 fL (80.0-100.0); Mean Platelet Volume 8.3; Monocytes # (A) 0.7 k/uL (0-1.0); Monocytes % (A) 7 %; Neutrophils # (A) 7.7 k/uL (1.3-7.7); Neutrophils % (A) 76 %; Platelet Count 168 k/uL (150-450); RBC 4.54 m/uL (4.30-5.90); RDW 13.3 % (11.5-15.5); WBC 10.1 k/uL (3.8-10.6)
[2021-12-31 06:10] LABS: Calcium 8.5 mg/dL (8.4-10.2); Potassium 3.9 mmol/L (3.5-5.1)
--- NOTE | 2021-12-31 07:37 | P.PN ---
Subjective Progress Note Date: 12/31/21 PROGRESS NOTE The patient is a 71-year-old male with no prior history of coronary disease who presented with chest discomfort and troponin elevation, he had no significant EKG changes. He underwent cardiac catheterization and was found to have no evidence of obstructive disease. He is doing well this morning. He denies any chest discomfort, dizziness or palpitations. He continues to be in sinus mech anism with no ectopic activity. Hemodynamically he is stable. He continues to be on aspirin, atorvastatin 80 mg daily, metoprolol succinate 12-1/2 mg daily. PHYSICAL EXAMINATION: Blood pressure 111/78 heart rate 63 LUNGS: Clear to auscultation HEART: Regular rate and rhythm, S1, S2. No S3. No systolic murmur ABDOMEN: Soft, nontender, no organomegaly EXTREMETIES: No edema LAB: BUN 22, creatinine 1.57, peak troponin 7.2, cholesterol 174, LDL 95 IMPRESSION: 1. Elevated troponin with no evidence of obstructive coronary artery disease, possible myocarditis 2. Chronic kidney disease 3. History of prostate cancer PLAN: 1. Obtain an echocardiogram with Doppler 2. Increase level of activity 3. If stable probable discharge home today and follow-up as an outpatient and probable undergoing cardiac MRI for further evaluation. Objective - Vital Signs Vital signs: Vital Signs Temp 99.1 F 12/31/21 04:00 Pulse 63 12/31/21 04:00 Resp 23 12/31/21 04:00 BP 111/78 12/31/21 04:00 Pulse Ox 96 12/31/21 04:00 Intake & Output 12/30/21 12/31/21 12/31/21 18:59 06:59 18:59 Intake Total 120 200 Output Total 575 300 Balance -455 -100 Weight 93.8 kg Intake: IV 20 cefTRIAXone 1 gm In 20 Sodium Chloride 0.9% 50 ml @ 100 mls/hr IVPB ONCE ONE Rx#:[id number] Oral 100 200 Output: Urine 575 300 - Labs CBC & Chem 7: 12/31/21 05:30 12/31/21 05:30 Labs: Abnormal Lab Results - Last 24 Hours (Table) 12/30/21 12/30/21 12/31/21 Range/Units 07:10 07:10 05:30 WBC 11.2 H (3.8-10.6) k/uL Neutrophils # 9.4 H (1.3-7.7) k/uL Sodium 133 L 133 L (137-145) mmol/L BUN 22 H (9-20) mg/dL Creatinine 1.47 H 1.57 H (0.66-1.25) mg/dL Glucose 111 H (74-99) mg/dL HDL Cholesterol 65.70 H (40.00-60.00) mg/dL Microbiology - Last 24 Hours (Table) 12/29/21 18:48 Blood Culture - Preliminary Blood No Growth after 24 hours
[2021-12-31] MEDS: METOPROLOL SUCCINATE (ER) 25 MG TAB.ER.24H PO SCH (08:18)
[2021-12-31] MEDS: PANTOPRAZOLE 40 MG TABLET PO SCH (08:18)
[2021-12-31] MEDS: HEPARIN SOD,PORK IN 0.45% NACL 25,000 UNIT in 0.45% NACL 1 250ML.BAG IV SCH (08:24)
[2021-12-31] MEDS ORDERED: ASPIRIN 81 MG PO SCH (09:00)
[2021-12-31 12:17] VITALS: BP 118/74; PULSE 67; RESP 10; TEMP 97.8
--- NOTE | 2021-12-31 12:49 | P.DS ---
Providers Date of admission: 12/29/21 12:38 Attending physician: Angely Chang Consults: 12/29/21 12:38 Consult Physician Urgent Consulting Provider: Burke Velarde Consult Reason/Comments: NSTEMI Do you want consulting provider notified?: Already Contacted Primary care physician: Stated None Hospital Course: Patient is a pleasant 71-year-old male came in with chest pain underwent cardiac cardiac catheterization. Patient also had elevated troponins are going up to 7.2 troponin. Patient underwent cardiac catheterization which did not show any significant obstructive disease. Patient was believed to have viral myocarditis. Patient will undergo outpatient MRI and patient will be discharged today. PHYSICAL EXAMINATION: GENERAL: The patient is alert and oriented x3, not in any acute distress. Well developed, well nourished. HEENT: Pupils are round and equally reacting to light. EOMI. No scleral icterus. No conjunctival pallor. Normocephalic, atraumatic. No pharyngeal erythema. No thyromegaly. CARDIOVASCULAR: S1 and S2 present. No murmurs, rubs, or gallops. PULMONARY: Chest is clear to auscultation, no wheezing or crackles. ABDOMEN: Soft, nontender, nondistended, normoactive bowel sounds. No palpable organomegaly. MUSCULOSKELETAL: No joint swelling or deformity. EXTREMITIES: No cyanosis, clubbing, or pedal edema. NEUROLOGICAL: Gross neurological examination did not reveal any focal deficits. SKIN: No rashes. Assessment and plan -Chest pain probably secondary to viral myocarditis pain improved patient will be discharged today. -Possible chronic kidney disease stage III patient present creatinine is around 1.5 on admission it was 1.3. Nonsteroidal anti-inflammatory medications will discuss reviewed. -Cellulitis secondary to viral infection which resolved at this time. -Hypervolemic hyponatremia -History of prostate cancer for which patient is on treatment at this time. Patient Condition at Discharge: Stable Plan - Discharge Summary Discharge Rx Participant: No New Discharge Prescriptions: Continue Ginkgo Biloba 500 mg PO DAILY Discontinued Omeprazole 20 mg PO DAILY Ibuprofen [Motrin Ib] 200 mg PO Q8H PRN PRN Reason: Pain No Action Glucosamine HCl/Chondroitin Wetzel [Glucosamine-Chondroitin Cap] 1 cap PO DAILY Ascorbic Acid [Vitamin C] 500 mg PO DAILY Discharge Medication List Ascorbic Acid [Vitamin C] 500 mg PO DAILY 12/29/21 [History] Ginkgo Biloba 500 mg PO DAILY 12/29/21 [History] Glucosamine HCl/Chondroitin Wetzel [Glucosamine-Chondroitin Cap] 1 cap PO DAILY 12/29/21 [History] Follow up Appointment(s)/Referral(s): Julianna Mcgovern MD [STAFF PHYSICIAN] - 1 Week Discharge Disposition: HOME SELF-CARE
--- NOTE | 2022-01-01 13:00 | ECHOF ---
Referral Reason:NSTEMI MEASUREMENTS -------- HEIGHT: 157.5 cm WEIGHT: 93.4 kg BP: RVIDd: 3.2 cm (< 3.3) IVSd: 1.1 cm (0.6 - 1.1) LVIDd: 5.3 cm (3.9 - 5.3) LVPWd: 1.0 cm (0.6 - 1.1) IVSs: 1.5 cm LVIDs: 4.2 cm LVPWs: 1.2 cm LAESV Index (A-L): 32.73 ml/m Ao Diam: 3.4 cm (2.0 - 3.7) AV Cusp: 2.0 cm (1.5 - 2.6) LA Diam: 3.4 cm (2.7 - 3.8) MV EXCURSION: 17.354 mm (> 18.000) MV EF SLOPE: 101 mm/s (70 - 150) EPSS: 0.3 cm MV E Marcelino: 0.99 m/s MV DecT: 170 ms MV A Marcelino: 0.84 m/s MV E/A Ratio: 1.17 RAP: 5.00 mmHg RVSP: 27.49 mmHg FINDINGS -------- Sinus rhythm. This was a technically good study. LV size, wall thickness and systolic function are normal, with an EF greater than 55%. The left jeanette tricular size is normal. The right ventricle is normal in size. LA is midly dilated 29-33ml/m2. The right atrial size is normal. The aortic valve is trileaflet, and appears structurally normal. No aortic stenosis or regurgitation. Mild mitral regurgitation is present. Mild tricuspid regurgitation present. Right ventricular systolic pressure is normal at < 35 mmHg. There is no pulmonic regurgitation present. There is no pericardial effusion. CONCLUSIONS -------- 1. LV size, wall thickness and systolic function are normal, with an EF greater than 55%. 2. The left ventricular size is normal. 3. The right ventricle is normal in size. 4. LA is midly dilated 29-33ml/m2. 5. The right atrial size is normal. 6. The aortic valve is trileaflet, and appears structurally normal. No aortic stenosis or regurgitati on. 7. Mild mitral regurgitation is present. 8. Mild tricuspid regurgitation present. 9. There is no pericardial effusion. ELECTRO WINNING OPERATOR: Radha Barahona RDCS
== END 2021-12-31 15:54 | disposition home or self-care (01) | DRG 287 ==
LOC: EC 11:01 → 3SCARD 12:38 → 2SICU 13:29
PROVIDERS: ADMIT Internal Medicine; ATTEND Internal Medicine
PROC: B2111ZZ Fluoroscopy of Multiple Coronary Arteries using Low Osmolar Contrast (ICD-10-PCS; 2021-12-29)
PROC: B3101ZZ Fluoroscopy of Thoracic Aorta using Low Osmolar Contrast (ICD-10-PCS; 2021-12-29)
PROC: 4A023N7 Measurement of Cardiac Sampling and Pressure, Left Heart, Percutaneous Approach (ICD-10-PCS; principal; 2021-12-29 13:43)
DX: I40.0 Infective myocarditis (principal); E87.1 Hypo-osmolality and hyponatremia; N17.9 Acute kidney failure, unspecified; L03.90 Cellulitis, unspecified; N18.30 Chronic kidney disease, stage 3 unspecified; I25.10 Atherosclerotic heart disease of native coronary artery without angina pectoris; Z20.822 Contact with and (suspected) exposure to COVID-19; E86.1 Hypovolemia; I95.9 Hypotension, unspecified; R00.1 Bradycardia, unspecified; E87.70 Fluid overload, unspecified; K21.9 Gastro-esophageal reflux disease without esophagitis; Z79.899 Other long term (current) drug therapy; Z82.49 Family history of ischemic heart disease and other diseases of the circulatory system; Z85.46 Personal history of malignant neoplasm of prostate
CPT/HCPCS: 36415; 71046; 80048; 80053; 80061; 83735; 83880; 84443; 84484; 85025; 85610; 85730; 86140; 87040; 87636; 93005; 93306; 93458; 96361; 96374; 96375; 99291

== ENCOUNTER → 2022-01-29 | Outpatient (CLI) | payer MEDICARE ==
--- NOTE | 2022-02-03 22:13 | MR ---
EXAMINATION TYPE: MR Prostate wo/w con DATE OF EXAM: 01/29/2022 COMPARISON: Prior MRI Prostate January 16, 2021 IMAGE QUALITY: . INDICATION: F/U post treatment prostate cancer. PSA: 12.97 ng/ml on January 24, 2022 Recent Biopsy and Date: April 24, 2020. Pathology Report (If Applicable): Adenocarcinoma [place] score 3+3 = 6 left base, left lateral apex. Minute focus atypical small acinar proliferation left mid and right lateral mid TECHNIQUE: Examination was performed using a 3T MRI without an endorectal coil. Multiparametric imaging was perf ormed with T2 mutliplanar sequences, axial diffusion weighted imaging and dynamic contrast enhanced i maging, utilizing 9.5 mL intravenous Gadavist gadolinium contrast. FINDINGS: PROSTATE VOLUME: 4.9 cm SI x 3.9 cm AP x 4.5 cm LR Vol= 45.0 cc Predicted PSA: 5.4 Mildly enlarged prostate gland redemonstrated, slightly increased in size from prior.. Peripheral zon e now has suspicious area in the lateral apex measuring approximately 10 x 8 mm of marked hypointensi ty on ADC mapping with increased signal are hyperintensity and diffusion weighted not present on prio r. PIRADS 4 lesion. Some heterogeneity of the transitional zone on T2-weighted images without suspicious new hypointense nodules or areas. A superior 1.3 x 1.0 cm thin-walled cyst at the junction of the base and seminal ve sicles in the midline posteriorly is redemonstrated. Prostate capsule is maintained. Seminal vesicles appear within normal limits. Bladder shows mild dist ention with mild trabeculation and mild to moderate wall thickening on current study. Mild wall thickening in visualized portion of the sigmoid rectal colon seen on current study.. No con cerning pelvic fluid collection. Visualized osseous structures are intact. Small to moderate-sized fa t containing right greater than left inguinal hernias are redemonstrated. IMPRESSION: A new focus of cancer is felt present left lateral base peripheral zone. Highest Assessment Category: 4 MRI Stage: T1c N0 M0 based on review of pelvic images. False negative rates for MRI range from 5-20% depending on risk profile. Assessment Categories: 1 ? Very low (clinically significant cancer is highly unlikely to be present) 2 ? Low (clinically significant cancer is unlikely to be present) 3 ? Intermediate (the presence of clinically significant cancer is equivocal) 4 ? High (clinically significant cancer is likely to be present) 5 ? Very high (clinically significant cancer is highly likely to be present)
== END | disposition home or self-care (01) ==
LOC: RADMRIMAIN 08:30
PROVIDERS: ATTEND Urology
DX: C61 Malignant neoplasm of prostate (principal)
CPT/HCPCS: 72197; A9585

== ENCOUNTER 2022-08-02 19:39 | Observation (INO) | payer MEDICARE ==
[2022-08-02 20:17] LABS: Basophils # (A) 0.1 k/uL (0-0.2); Basophils % (A) 1 %; Eosinophils # (A) 0.3 k/uL (0-0.7); Eosinophils % (A) 5 %; HCT 39.2 % (39.0-53.0); HGB 13.5 gm/dL (13.0-17.5); Lymphocytes # (A) 1.6 k/uL (1.0-4.8); Lymphocytes % (A) 24 %; MCH 29.6 pg (25.0-35.0); MCHC 34.3 g/dL (31.0-37.0); MCV 86.3 fL (80.0-100.0); Mean Platelet Volume 8.7; Monocytes # (A) 0.4 k/uL (0-1.0); Monocytes % (A) 7 %; Neutrophils % (A) 61 %; Platelet Count 198 k/uL (150-450); RBC 4.55 m/uL (4.30-5.90); RDW 13.5 % (11.5-15.5); WBC 6.5 k/uL (3.8-10.6)
--- NOTE | 2022-08-02 20:21 | XR ---
EXAMINATION TYPE: XR chest 2V DATE OF EXAM: 08/02/2022 COMPARISON: 12/29/2021 HISTORY: Chest pain TECHNIQUE: FINDINGS: Heart and mediastinum are normal. Lungs are clear. Diaphragm is normal. Bony thorax is inta ct. IMPRESSION: Normal chest. No change.
[2022-08-02 20:26] LABS: Albumin 4.1 g/dL (3.5-5.0); Calcium 8.6 mg/dL (8.4-10.2); Magnesium 1.9 mg/dL (1.6-2.3); Potassium 3.8 mmol/L (3.5-5.1); Total Bilirubin 0.5 mg/dL (0.2-1.3); Total Protein 6.3 g/dL (6.3-8.2)
[2022-08-02 20:44] LABS: INR 0.9 (<1.2); Partial Thromboplastin Time 24.7 sec (22.0-30.0)
[2022-08-02] MEDS ORDERED: ASPIRIN 81 MG PO STA (22:18)
--- NOTE | 2022-08-02 22:29 | ED ---
General Adult HPI - General Chief complaint: Chest Pain Stated complaint: chest pain Time Seen by Provider: 08/02/22 22:00 Source: family, RN notes reviewed, old records reviewed Mode of arrival: wheelchair Limitations: no limitations - History of Present Illness Initial comments: Patient is a 72-year-old male with past medical history remarkable for cardiac disease, he said previous SD earlier this year, cancer, prostate disorder who presents emergency Department complaining of intermittent stabbing chest pain over the last day. States it started earlier this morning/afternoon following blowing leaves outside this morning. States since an MRI that was obtained to 6 months ago, he has a chronic left-sided chest discomfort that he states is "in the shadows." And it improved when he was placed on a new heart medication by Dr. Mora. States that today however he began having difficulty pain, a sharp stabbing pain over the left side of his chest that would last for seconds. States that his occurred approximately 15 times. Last occurred around 7 PM. Patient has a partially 1 hour away and drove himself here for further evaluation. 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 Mora. Has also seen Dr. Velarde. He denies any current chest pain. Denies any soreness of breath. Denies any other symptoms including nausea, vomiting, diarrhea, abdominal pain, weakness, lightheadedness, blurry vision. Denies any fevers or chills or cough. Presents for further evaluation at this time. - Related Data Home Medications Medication Instructions Recorded Confirmed Aspirin EC [Ecotrin Low Dose] 81 mg PO HS 08/02/22 08/02/22 Atorvastatin [Lipitor] 20 mg PO HS 08/02/22 08/02/22 Isosorbide Mononitrate ER [Imdur] 30 mg PO DAILY 08/02/22 08/02/22 Metoprolol Succinate [Metoprolol 25 mg PO W/SUPPER 08/02/22 08/02/22 Succinate ER] Allergies Allergy/AdvReac Type Severity Reaction Status Date / Time No Known Allergies Allergy Verified 08/02/22 22:41 Review of Systems ROS Statement: Those systems with pertinent positive or pertinent negative responses have been documented in the HPI. Review of Systems: CONST: Denies fever EYES: Denies blurry vision ENT: Denies nasal congestion C/V: Denies Chest pain RESP: Denies shortness of breath GI: Denies abdominal pain : Denies dysuria SKIN: Denies rash. MSK: Denies joint pain. NEURO: Denies headache ROS Other: All systems not noted in ROS Statement are negative. Past Medical History Past Medical History: Cancer, Myocardial Infarction (SD), Prostate Disorder Additional Past Medical History / Comment(s): prostate Cancer April 2020 History of Any Multi-Drug Resistant Organisms: None Reported Past Surgical History: No Surgical Hx Reported, Heart Catheterization Past Psychological History: No Psychological Hx Reported Smoking Status: Never smoker Past Alcohol Use History: None Reported Past Drug Use History: None Reported General Exam - General Exam Comments Initial Comments: General: Appears in no acute distress. HEAD: Normal with no signs of head trauma. EYES: PERRLA, EOMI, conjunctiva normal, no discharge. ENT: Hearing grossly intact, normal oropharynx. RESPIRATORY: Clear breath sounds bilaterally. No wheezes, rales, or rhonchi. C/V: Regular rate and rhythm. S1 and S2 auscultated, no edema, peripheral pulses 2+ and intact throughout ABD: Abd is soft, nontender, nondistended EXT: Normal range of motion, no obvious deformity SKIN: No rashes or lesions observed on exposed skin. NEURO: Alert and oriented 4. Limitations: no limitations Course Vital Signs 08/02/22 08/02/22 08/02/22 19:41 21:37 23:45 Temperature 98.3 F 97.8 F Pulse Rate 73 64 60 Pulse Rate [ 64 Direct Marketing Representative ] Respiratory 18 16 16 Rate Blood Pressure 152/70 127/108 120/106 O2 Sat by Pulse 98 97 96 Oximetry Medical Decision Making - Medical Decision Making Based on the patient's presentation and physical exam, I am concerned for possible cardiopulmonary etiology for the patient's chest pain. Does have a history of an SD. Currently is asymptomatic at this time. I evaluated the patient after initial labs were drawn in triage. Vital signs within acceptable limits. He remains asymptomatic. Will be given aspirin. Laboratory studies remarkable for a chronically mildly elevated creatinine of 1.38. Appears to be baseline. Troponin is undetectable. EKG shows no signs of acute ischemia. Chest x-ray reveals no acute cardio primary process. I discussed with the patient that due to his risk factors, I believe observation telemetry admission is warranted. He was in agreement this plan. Heart score is moderate at 4. Patient will be admitted to observation telemetry. We will trend the troponin. Cardiology will be consulted. I spoke with observation on-call, Dr. Rincon who accepted the patient. Patient was admitted in stable condition to telemetry bed. - Lab Data Result diagrams: 08/02/22 20:06 08/02/22 20:06 Lab Results 08/02/22 08/02/22 08/02/22 Range/Units 20:06 20:06 20:06 WBC 6.5 (3.8-10.6) k/uL RBC 4.55 (4.30-5.90) m/uL Hgb 13.5 (13.0-17.5) gm/dL Hct 39.2 (39.0-53.0) % MCV 86.3 (80.0-100.0) fL MCH 29.6 (25.0-35.0) pg MCHC 34.3 (31.0-37.0) g/dL RDW 13.5 (11.5-15.5) % Plt Count 198 (150-450) k/uL MPV 8.7 Neutrophils % 61 % Lymphocytes % 24 % Monocytes % 7 % Eosinophils % 5 % Basophils % 1 % Neutrophils # 4.0 (1.3-7.7) k/uL Lymphocytes # 1.6 (1.0-4.8) k/uL Monocytes # 0.4 (0-1.0) k/uL Eosinophils # 0.3 (0-0.7) k/uL Basophils # 0.1 (0-0.2) k/uL PT 10.0 (9.0-12.0) sec INR 0.9 (<1.2) APTT 24.7 (22.0-30.0) sec Sodium 134 L (137-145) mmol/L Potassium 3.8 (3.5-5.1) mmol/L Chloride 98 (98-107) mmol/L Carbon Dioxide 23 (22-30) mmol/L Anion Gap 13 mmol/L BUN 11 (9-20) mg/dL Creatinine 1.38 H (0.66-1.25) mg/dL Est GFR (CKD-EPI)AfAm 59 (>60 ml/min/1.73 sqM) Est GFR (CKD-EPI)NonAf 51 (>60 ml/min/1.73 sqM) Glucose 102 H (74-99) mg/dL Calcium 8.6 (8.4-10.2) mg/dL Magnesium 1.9 (1.6-2.3) mg/dL Total Bilirubin 0.5 (0.2-1.3) mg/dL AST 30 (17-59) U/L ALT 25 (4-49) U/L Alkaline Phosphatase 58 (38-126) U/L Troponin I (0.000-0.034) ng/mL Total Protein 6.3 (6.3-8.2) g/dL Albumin 4.1 (3.5-5.0) g/dL 08/02/22 Range/Units 20:06 WBC (3.8-10.6) k/uL RBC (4.30-5.90) m/uL Hgb (13.0-17.5) gm/dL Hct (39.0-53.0) % MCV (80.0-100.0) fL MCH (25.0-35.0) pg MCHC (31.0-37.0) g/dL RDW (11.5-15.5) % Plt Count (150-450) k/uL MPV Neutrophils % % Lymphocytes % % Monocytes % % Eosinophils % % Basophils % % Neutrophils # (1.3-7.7) k/uL Lymphocytes # (1.0-4.8) k/uL Monocytes # (0-1.0) k/uL Eosinophils # (0-0.7) k/uL Basophils # (0-0.2) k/uL PT (9.0-12.0) sec INR (<1.2) APTT (22.0-30.0) sec Sodium (137-145) mmol/L Potassium (3.5-5.1) mmol/L Chloride (98-107) mmol/L Carbon Dioxide (22-30) mmol/L Anion Gap mmol/L BUN (9-20) mg/dL Creatinine (0.66-1.25) mg/dL Est GFR (CKD-EPI)AfAm (>60 ml/min/1.73 sqM) Est GFR (CKD-EPI)NonAf (>60 ml/min/1.73 sqM) Glucose (74-99) mg/dL Calcium (8.4-10.2) mg/dL Magnesium (1.6-2.3) mg/dL Total Bilirubin (0.2-1.3) mg/dL AST (17-59) U/L ALT (4-49) U/L Alkaline Phosphatase (38-126) U/L Troponin I <0.012 (0.000-0.034) ng/mL Total Protein (6.3-8.2) g/dL Albumin (3.5-5.0) g/dL - EKG Data -: EKG Interpreted by Me EKG Comments: 12-lead Electrocardiogram Interpretation Note EKG was reviewed and interpreted by myself. 12-lead ECG performed at 1948 is interpreted by me as revealing normal sinus rhythm at a rate of 64 beats per minute. Pateros is normal. LA interval is 154 ms, QRS duration is 92 ms, QTc is 388 ms.. There were no ST or T wave abnormalities to suggest myocardial ischemia or injury. R wave progression across the precordium was satisfactory. By my interpretation this EKG is non-diagnostic for acute ischemia. When compared with EKG from December 2021, no significant changes. Disposition Clinical Impression: Chest pain Disposition: ADMITTED IP TO THIS HOSP Condition: Stable Referrals: Georgia Zimmer, PAC [Primary Care Provider] - 1-2 days Time of Disposition: 22:32
[2022-08-02] MEDS ORDERED: NALOXONE 0.4 MG/ML 1 ML VIAL IV PRN (23:51)
[2022-08-03] MEDS: HEPARIN SODIUM,PORCINE/PF 5,000 UNIT/0.5 ML SYRINGE SQ SCH ×2 (02:04→08:56)
[2022-08-03 02:10] VITALS: RESP 18
--- NOTE | 2022-08-03 03:35 | P.HPIM ---
History of Present Illness H&P Date: 08/03/22 The patient is 72-year-old male with a PMH of stage I prostate cancer, and coronary artery disease who presents to the emergency room with complaints of chest pain. 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 The p atient reports that he was diagnosed with an SC 6-7 months ago at which time he underwent an extensive evaluation including cardiac catheterization and a cardiac MRI and was advised to start new medications including Imdur which helped alleviate his occasional chest discomfort. He reports however that his pain started again last night while he was at home, was pressure-like, substernal, nonradiating, and persistent. At time of interview, he reports that his pain has resolved. Denies fainting shortness of breath, nausea, vomiting, diaphoresis, or dizziness. Denied fever, chills, cough, lower extremities swelling, lower extremity pain. Chest x-ray was unremarkable. EKG reveals sinus rhythm at 64 bpm with Q waves in lead 3. Laboratory evaluation revealed a troponin of less than 0.012 with creatinine 1.38. Review of systems: Pertinent positives and negatives as discussed in HPI, a complete review of systems was performed and all other systems are negative. Physical examination: General: non toxic, no distress, appears younger than stated age, normal weight Derm: no unusual rashes/lesions, warm Head: atraumatic, normocephalic, symmetric Eyes: EOMI, no lid lag, anicteric sclera, pupils equal round reactive to light ENT: Nose and ears atraumatic Neck: No cervical lymphadenopathy, trachea midline, supple Mouth: no lip lesion, mucus membranes moist Cardiovascular: S1S2 reg, no murmur, positive dorsalis pedis pulse bilateral, no edema Lungs: CTA bilateral, no rhonchi, no rales, no accessory muscle use Abdominal: soft, nontender to palpation, no guarding Ext: muscle strength 5 out of 5 in all 4 extremities grossly, no gross muscle atrophy, no contractures, Neuro: CN II-XI grossly intact, no gross focal neuro deficits Psych: Alert, oriented, appropriate affect Assessment/plan Chest pain, rule out ACS -Cardiology consult -Cardiac monitoring -Continue with aspirin, statin -Echocardiogram DVT prophylaxis -Heparin subq The patient is admitted with an anticipated less than 2 midnight stay for evaluation of chest pain CODE STATUS: Full Code Discussed with: Patient Anticipated discharge date: in am Anticipated discharge place: Home Past Medical History Past Medical History: Cancer, Myocardial Infarction (SC), Prostate Disorder Additional Past Medical History / Comment(s): prostate Cancer April 2020 Last Myocardial Infarction Date:: 12/29/21 History of Any Multi-Drug Resistant Organisms: None Reported Past Surgical History: No Surgical Hx Reported, Heart Catheterization Past Psychological History: No Psychological Hx Reported Smoking Status: Never smoker Past Alcohol Use History: None Reported Past Drug Use History: None Reported - Past Family History Father Family Medical History: Coronary Artery Disease (CAD) Medications and Allergies Home Medications Medication Instructions Recorded Confirmed Type Aspirin EC [Ecotrin Low Dose] 81 mg PO HS 08/02/22 08/02/22 History Atorvastatin [Lipitor] 20 mg PO HS 08/02/22 08/02/22 History Isosorbide Mononitrate ER [Imdur] 30 mg PO DAILY 08/02/22 08/02/22 History Metoprolol Succinate [Metoprolol 25 mg PO W/SUPPER 08/02/22 08/02/22 History Succinate ER] Allergies Allergy/AdvReac Type Severity Reaction Status Date / Time No Known Allergies Allergy Verified 08/02/22 22:41 Physical Exam Vitals: Vital Signs Temp Pulse Pulse Resp BP BP Pulse Ox 08/03/22 02:00 77 18 08/03/22 01:40 97.9 F 55 L 16 127/77 99 08/02/22 23:45 97.8 F 60 16 120/106 96 08/02/22 21:37 64 64 16 127/108 97 08/02/22 19:41 98.3 F 73 18 152/70 98 Intake and Output 08/02/22 08/02/22 08/03/22 14:59 22:59 06:59 Other: Voiding Method Toilet # Voids 1 Weight 88.451 kg 88.451 kg Results CBC & Chem 7: 08/02/22 20:06 08/02/22 20:06 Labs: Abnormal Lab Results - Last 24 Hours (Table) 08/02/22 Range/Units 20:06 Sodium 134 L (137-145) mmol/L Creatinine 1.38 H (0.66-1.25) mg/dL Glucose 102 H (74-99) mg/dL
[2022-08-03 03:49] LABS: Basophils # (A) 0.1 k/uL (0-0.2); Basophils % (A) 1 %; Eosinophils # (A) 0.3 k/uL (0-0.7); Eosinophils % (A) 5 %; HCT 37.9 % (39.0-53.0); HGB 12.8 gm/dL (13.0-17.5); Lymphocytes # (A) 1.8 k/uL (1.0-4.8); Lymphocytes % (A) 29 %; MCH 28.9 pg (25.0-35.0); MCHC 33.8 g/dL (31.0-37.0); MCV 85.5 fL (80.0-100.0); Mean Platelet Volume 8.3; Monocytes # (A) 0.4 k/uL (0-1.0); Monocytes % (A) 6 %; Neutrophils # (A) 3.6 k/uL (1.3-7.7); Neutrophils % (A) 57 %; Platelet Count 178 k/uL (150-450); RBC 4.44 m/uL (4.30-5.90); RDW 13.5 % (11.5-15.5); WBC 6.4 k/uL (3.8-10.6)
[2022-08-03 04:14] LABS: Calcium 8.5 mg/dL (8.4-10.2); Potassium 3.7 mmol/L (3.5-5.1)
[2022-08-03 08:22] VITALS: BP 118/68; TEMP 98
[2022-08-03] MEDS ORDERED: ISOSORBIDE MONONITRATE ER 30 MG TAB.ER.24H PO SCH (09:00)
[2022-08-03 10:21] VITALS: PULSE 77
--- NOTE | 2022-08-03 12:19 | CA ---
Transthoracic Echo Report Name: Tayo Rolle Age: 72 Gender: M : 1950 Exam Date: 08/03/2022 09:53 Exam Location: [facility] Ht (in): 62 Wt (lb): 195 Ordering Physician: Caio Rincon MD Attending/Referring Phys: Coding Tech Radha Barahona RDCS Procedure CPT: Indications: Chest Pain Cardiac Hx: Technical Quality: Good Contrast 1: Total Dose (mL): Contrast 2: Total Dose (mL): MEASUREMENTS (Male / Female) Normal Values 2D ECHO LV Diastolic Diameter PLAX 4.3 cm 4.2 - 5.9 / 3.9 - 5.3 cm LV Systolic Diameter PLAX 3.3 cm IVS Diastolic Thickness 1.2 cm 0.6 - 1.0 / 0.6 - 0.9 cm LVPW Diastolic Thickness 1.5 cm 0.6 - 1.0 / 0.6 - 0.9 cm LV Relative Wall Thickness 0.6 RV Internal Dim ED PLAX 2.6 cm LA Systolic Diameter LX 3.6 cm 3.0 - 4.0 / 2.7 - 3.8 cm LA Volume 65.9 cm??? 18 - 58 / 22 - 52 cm??? M-MODE Aortic Root Diameter MM 3.7 cm LA Systolic Diameter MM 4.0 cm LA Ao Ratio MM 1.1 MV E Point Septal Separation 0.2 cm AV Cusp Separation MM 1.7 cm DOPPLER MV Area PHT 2.1 cm??? Mitral E Point Velocity 52.0 cm/s Mitral A Point Velocity 62.6 cm/s Mitral E to A Ratio 0.8 MV Deceleration Time 353.6 ms MV E' Velocity 8.6 cm/s Mitral E to MV E' Ratio 6.0 TR Peak Velocity 196.3 cm/s TR Peak Gradient 15.4 mmHg Right Ventricular Systolic Press 20.4 mmHg FINDINGS Left Ventricle Left ventricular ejection fraction is estimated at 50-55%. Mildly increased left ventricular wall thickness. Right Ventricle Normal right ventricular size and function. Right ventricular systolic pressure within normal limits. Right Atrium Normal right atrial size. Left Atrium Mildly increased left atrial volume. Mitral Valve Structurally normal mitral valve. Mild mitral regurgitation. Aortic Valve Trileaflet aortic valve. Tricuspid Valve Structurally normal tricuspid valve. Mild tricuspid regurgitation. Pulmonic Valve Structurally normal pulmonic valve. Pericardium Normal pericardium. Aorta Normal size aortic root and proximal ascending aorta. CONCLUSIONS Normal LV systolic function mild mitral regurgitation and mild tricuspid regurgitation Previewed by: Dr. Drew Garcia MD (Electronically Signed) Final Date: 03 August 2022 12:18
--- NOTE | 2022-08-03 12:56 | P.DS ---
Providers Date of admission: 08/02/22 23:51 Expected date of discharge: 08/03/22 Attending physician: Caio Rincon MD Consults: 08/02/22 23:51 Consult Physician Routine Consulting Provider: [facility] Consult Reason/Comments: chest pain Do you want consulting provider notified?: Yes, Notify in am Primary care physician: Georgia Zimmer Hospital Course: Discharge Diagnosis: Chest pain, acute coronary event ruled out. Troponins trended all negative at less than 0.0123 draws. CBC, CMP, and coags showing no significant abnormalities. EKG sinus mechanism. Echo revealing EF of 50-55% with mild mitral and tricuspid regurgitation. Patient to follow up outpatient with PCP in 1-2 days and cardiology in 1 week. History of CAD with previous MA. Continue cardiac medication regimen with aspirin, metoprolol, atorvastatin, isosorbide mononitrate, and as needed nitroglycerin tablets. History of prostate cancer, continue to follow up outpatient with urology. Hospital Course: Patient is a very pleasant 72-year-old male with a past medical history of prostate cancer, chronic kidney disease stage III and CAD with previous MA. He presented to the emergency department with a chief complaint of intermittent chest pain described as a tightness. Patient underwent full evaluation in the emergency department. CBC, coags, and CMP showing no significant abnormalities. Renal function slightly elevated with BUN 11, creatinine 1.38, and GFR 51 with baseline creatinine of 1.4. Troponin negative at less than 0.012. EKG completed revealing sinus rhythm at 64 bpm no significant T-wave or ST abnormalities were noted. Chest x-ray negative for acute cardiopulmonary proce ss. Patient was admitted under services of consultation to cardiology. Patient has had no further episodes of chest pain/tightness since admission to our facility. Troponins trended overnight and all negative at less than 0.0123 draws. Echocardiogram completed revealing normal EF of 50-55% with mild mitral and tricuspid regurgitation. Cardiology clearing patient from cardiac standpoint and recommending outpatient in their office in one week to discuss previous stress test results. Patient free from any complaints at this time including headache, lightheadedness, dizziness, chest pain, palpitations, shortness of breath, or experiencing any numbness/tingling/weakness/swelling in his extremities. Patient is medically stable at this time. Vital signs unremarkable. Patient medically stable for discharge to follow up outpatient with PCP in 1-2 days and cardiology in 1 week as discussed. Physical exam: Patient seen and examined at bedside. Vital signs reviewed and stable. General: Nontoxic, no distress and appears stated age. Derm: Skin warm and dry, normal coloration for ethnicity. Head: Atraumatic, normocephalic and symmetric. Eyes: EOMs intact, no lid lag, and anicteric sclera Mouth: no lip lesions, mucus membranes moist Cardiovascular: regular rate and rhythm with normal S1S2, no murmur, positive posterior tibial pulses bilaterally, and cap refill < 2 seconds. Lungs: Respirations even, regular, and unlabored on room air. Lungs CTA bilaterally, no rhonchi, no rales, no wheezing, and no accessory muscle usage. Abdominal: soft, nontender to palpation, no guarding, no appreciable organomegaly Ext: ROM intact. No gross muscle atrophy, no edema, no contractures Neuro: Speech clear, face symmetrical and CN II-XII grossly intact with no noted focal neuro deficits Psych: Alert and oriented to person, place, time, and situation. Appropriate and pleasant affect. A total of 33 minutes of time were spent preparing this complex discharge summary. Pt was discharged on 08/03/22 at 12:48 PM. I reviewed the documentation as provided by the ELSI above, who is the original author of this note. I agree with the documented assessment and plan, with the following changes: none Patient Condition at Discharge: Stable Plan - Discharge Summary New Discharge Prescriptions: New Nitroglycerin Sl Tabs [Nitrostat] 0.4 mg SUBLINGUAL Q5M PRN #25 tab PRN Reason: Chest Pain Continue Aspirin EC [Ecotrin Low Dose] 81 mg PO HS Metoprolol Succinate [Metoprolol Succinate ER] 25 mg PO W/SUPPER Isosorbide Mononitrate ER [Imdur] 30 mg PO DAILY Atorvastatin [Lipitor] 20 mg PO HS Discharge Medication List Aspirin EC [Ecotrin Low Dose] 81 mg PO HS 08/02/22 [History] Atorvastatin [Lipitor] 20 mg PO HS 08/02/22 [History] Isosorbide Mononitrate ER [Imdur] 30 mg PO DAILY 08/02/22 [History] Metoprolol Succinate [Metoprolol Succinate ER] 25 mg PO W/SUPPER 08/02/22 [History] Nitroglycerin Sl Tabs [Nitrostat] 0.4 mg SUBLINGUAL Q5M PRN #25 tab 08/03/22 [Rx] Follow up Appointment(s)/Referral(s): Georgia Zimmer PAC [Primary Care Provider] - 1-2 days Drew Garcia MD [STAFF PHYSICIAN] - 1 Week (please keep follow up appointment that you already have. ) Patient Instructions/Handouts: Chest Pain (DC) Activity/Diet/Wound Care/Special Instructions: Activity: As tolerated. Take breaks as needed. Diet: Heart healthy and carb consistent diet. Avoid salts, or foods with hidden salts such as canned or boxed foods and frozen dinners. Extra salt makes your heart work harder and traps the fluid in your body for longer. Special Instructions: Take all of your medications as directed and remember to keep all of your doctor's appointments and follow-up as needed. Thank you for allowing us to participate in your care, it was truly a pleasure having you for our patient!!! Discharge Disposition: HOME SELF-CARE
[2022-08-03] MEDS ORDERED: METOPROLOL SUCCINATE (ER) 25 MG TAB.ER.24H PO SCH (17:30)
[2022-08-03] MEDS ORDERED: ASPIRIN 81 MG PO SCH (21:00)
[2022-08-03] MEDS ORDERED: ATORVASTATIN 20 MG TAB PO SCH (21:00)
--- NOTE | 2022-08-05 00:19 | CONS ---
CONSULTATION CHIEF COMPLAINT: Chest pain. HISTORY OF PRESENT ILLNESS: Tayo is a 72-year-old gentleman, who comes to me with symptoms of palpitations and sharp atypical chest pain. He was doing heavy physical exertion yesterday at home, raking leaves. He has had episodes, where his heart rate was elevated on his smart watch. He also was having intermittent jabbing sensation in the precordial area that concerned him since he came in. At the time of my evaluation, he appears comfortable at rest and is free of symptoms. He had an EKG on this admission that revealed normal sinus rhythm with evidence of prior inferior wall myocardial infarction. He had 3 sets of cardiac enzymes that are all unremarkable. He has mild renal insufficiency. The patient had a cardiac catheterization in December of [address] Velarde, and he had normal coronary arteries and normal LV systolic function. He subsequently had an MRI of his heart, where he had evidence of prior myocardial infarction. I have evaluated him since that time in my office and performed a stress test. The patient does not have any exertional chest pain, leg edema, PND, or orthopnea. MEDICATIONS: He is currently on: 1. Metoprolol. 2. Imdur. 3. Lipitor. 4. Aspirin. ALLERGIES: There are no known drug allergies. FAMILY HISTORY: Negative for premature coronary artery disease. SOCIAL HISTORY: Negative for current smoking, EtOH abuse or drug abuse. REVIEW OF SYSTEMS: HEENT: Unremarkable. CARDIAC: As described above. RESPIRATORY: Negative. GI: Negative. GENITOURINARY: Negative. ALLERGY/IMMUNOLOGY: Negative. SKIN: Negative. MUSCULOSKELETAL: Negative. ENDOCRINE: Negative. : Negative. CONSTITUTIONAL: Negative. ONCOLOGICAL: Negative. PRODUCT TEST ENGINEER: Negative. Rest of the system review is not relevant. PHYSICAL EXAMINATION: GENERAL: Comfortable at rest. VITAL SIGNS: Stable. NECK: There is no jugular venous distention. Carotid upstroke is normal. There is no bruit. CHEST: Reveals good air entry bilaterally. HEART: Reveals first and second heart sounds. No gallop. No murmur. No rub. ABDOMEN: Soft, nontender. EXTREMITIES: Examination of extremities did not reveal any edema. Peripheral pulses are felt. LABORATORY DATA: Labs show a potassium of 3.7, creatinine is 1.3. Troponins are negative. Hemoglobin is 12.8, platelet count is 178. ASSESSMENT: Atypical chest pain. PLAN: I will feed the patient, ambulate him, review the stress test findings from my office and consider discharging him home later today. I will obtain a 2D echo to reassess his LV function and wall motion. EDWIN / JOSE ELIAS: [id number] /
== END 2022-08-03 13:42 | disposition home or self-care (01) ==
LOC: EC 19:39 → 6NMEDSUR 23:51
PROVIDERS: ADMIT Internal Medicine; ATTEND Internal Medicine
DX: R07.89 Other chest pain (principal); R00.2 Palpitations; I08.1 Rheumatic disorders of both mitral and tricuspid valves; N18.30 Chronic kidney disease, stage 3 unspecified; I25.2 Old myocardial infarction; I25.10 Atherosclerotic heart disease of native coronary artery without angina pectoris; Z85.46 Personal history of malignant neoplasm of prostate; Z82.49 Family history of ischemic heart disease and other diseases of the circulatory system; Z98.890 Other specified postprocedural states; Z79.82 Long term (current) use of aspirin; Z79.899 Other long term (current) drug therapy
CPT/HCPCS: 99285; 36415; 93005; 93306; 80053; 80048; 83735; 84484 ×2; 85025 ×2; 85610; 85730; 71046; G0378

== ENCOUNTER → 2023-03-18 | Outpatient (CLI) | payer MEDICARE ==
--- NOTE | 2023-03-18 12:12 | CT ---
EXAMINATION TYPE: CT abdomen pelvis wo con DATE OF EXAM: 03/18/2023 COMPARISON: None HISTORY: Prostate cancer CT DLP: 830 mGycm Automated exposure control for dose reduction was used. TECHNIQUE: Helical acquisition of images was performed from the lung bases through the pelvis. FINDINGS: LUNG BASES: No significant abnormality is appreciated. LIVER/GB: Multiple hypodensities are seen scattered throughout the liver which appear well circumscri bed the largest measures 6 mm within the right lobe liver and 7 Hounsfield units. Statistically these are most likely related to simple cysts. Tiny gallstone seen. PANCREAS: No significant abnormality is seen. SPLEEN: 12 mm splenic artery aneurysm incidentally noted. ADRENALS: No significant abnormality is seen. KIDNEYS: No hydronephrosis or nephrolithiasis. There are bilateral hypodense lesions within the kidne ys which measure less than 15 Hounsfield units compatible simple cyst Bosniak classification I. FREE AIR: No free air is visualized RETROPERITONEAL ADENOPATHY: None visualized REPRODUCTIVE ORGANS: Rounded 7 mm low density seen within the prostate may represent patient's histor y of prostate cancer. URINARY BLADDER: No significant abnormality is seen. PELVIC ADENOPATHY: None visualized. OSSEOUS STRUCTURES: Sclerotic foci within the L1 segment measuring 1 cm. Severe multilevel degenerat jess disc disease and facet arthropathy with canal stenosis L4-5 and L5-S1. Suspect grade 1 anterolist hesis of L5 relative to S1 with bilateral foraminal encroachment. Sclerotic density left pubic ramus. BOWEL: No evidence of bowel obstruction. Appendix not seen with certainty. OTHER: No free air or free fluid. Prostate enlarged measuring 4.5 x 4.4 cm. Small fat-containing bila teral inguinal hernias and there is a small fat-containing anterior abdominal atherosclerotic changes . No evidence of aneurysm. IMPRESSION: 1. LOW DENSITY LESION INVOLVING THE PROSTATE WHICH APPEARS ENLARGED LIKELY RELATED THE PATIENT'S HIST ORY OF PROSTATE CARCINOMA. NO PATHOLOGIC ADENOPATHY. HYPODENSE LESIONS IN THE LIVER LIKELY RELATED TO SIMPLE CYSTS. 2. THERE ARE 2 TINY FOCI OF OSSEOUS SCLEROSIS. NOTED WITHIN THE L1 VERTEBRAL SEGMENT AND LEFT PUBIC R AMI. TOO SMALL TO CHARACTERIZE. COULD REPRESENT BONE ISLANDS. 3. CHOLELITHIASIS.
--- NOTE | 2023-03-18 14:23 | NM ---
EXAMINATION TYPE: NM bone scan whole body DATE OF EXAM: 03/18/2023 COMPARISON: CT scan 03/18/2023 CLINICAL INDICATION: Male, 72 years old with history of C61; Delayed whole-body scanning was performed following the injection of 22.0 mCi Tc 99m MDP. Images acq uired 3.25 hours post injection. FINDINGS: There is abnormal uptake involving the left ankle, bilateral feet, bilateral wrist, and shoulders mos t likely post arthritic. Abnormal uptake to a mild degree. Seen throughout the thoracic spine with more intense area at the co stovertebral junction posteriorly T10 on the left. Mild to moderate intensity uptake L5-S1 appears de generative. IMPRESSION: 1. Intense abnormal uptake at the posterior left rib cage at the chondral vertebral junction correspo nds to CT abnormality suspicious for healing fracture. 2. Abnormal uptake throughout the vertebral, most likely degenerative. 3. No diagnostic evidence of metastasis
== END | disposition home or self-care (01) ==
LOC: RADNMMAIN 09:47
PROVIDERS: ATTEND Urology
DX: C61 Malignant neoplasm of prostate (principal); K80.20 Calculus of gallbladder without cholecystitis without obstruction; N40.0 Benign prostatic hyperplasia without lower urinary tract symptoms
CPT/HCPCS: 74176; 78306; A9503

== ENCOUNTER → 2024-08-02 | Outpatient (CLI) | payer MEDICARE ==
--- NOTE | 2024-08-03 14:25 | XR ---
EXAMINATION TYPE: XR knee complete RT DATE OF EXAM: 08/02/2024 2:20 PM CLINICAL INDICATION: Male, 74 years old with history of [id number] RT KNEE PAIN; [facility] COMPARISON: None. TECHNIQUE: XR knee complete RT; examined in Frontal, lateral and oblique projections. FINDINGS: No evidence of any acute osseous pathology, soft tissue swelling, or joint effusion is no crystal. Tricompartmental osteophyte formation involving the femoral condyles, tibial plateau and patella . Mild joint space narrowing. IMPRESSION: 1. No acute osseous pathology. 2. Moderate tricompartmental osteoarthritic changes. [facility], , 08/03/2024 2:23 PM
== END | disposition home or self-care (01) ==
LOC: RADXRYALE 14:05
PROVIDERS: ATTEND Physician Assistant
DX: M17.11 Unilateral primary osteoarthritis, right knee (principal)

== ENCOUNTER → 2024-11-09 | Outpatient (CLI) | payer MEDICARE ==
[2024-11-09 12:07] LABS: African American GFR (CKD) 56 (>60 ml/min/1.73 sqM); Blood Urea Nitrogen 14 mg/dL (9-20); Non-African American GFR(CKD) 49 (>60 ml/min/1.73 sqM)
--- NOTE | 2024-11-09 13:32 | CT ---
EXAMINATION TYPE: CT abdomen pelvis wo/w con DATE OF EXAM: 11/09/2024 12:32 PM COMPARISON: 623 CLINICAL INDICATION: Male, 74 years old with history of R10.32 LLQ PAIN, LLQ pain, hx of prostate can cer with prostatectomy, hx of kidney stones, TECHNIQUE: Contiguous axial scanning of the abdomen and pelvis before and after administration of 100 ml Isovue 300 IV contrast. Delayed images through the kidneys and coronal/sagittal reconstructions performed. CT DLP: 2248 mGycm, Automated exposure control for dose reduction was used. FINDINGS: The heart is normal size without pericardial effusion. Some emphysematous change in the lower lungs. No pleural effusion. There is a small hiatal hernia. A couple benign cysts within each hepatic lobe, largest measuring 1.5 cm. Portal venous system is pat ent. No biliary ductal dilatation. Gallbladder shows an adherent tiny 4 mm stone. No abnormal gallbladder distention. Adrenal glands, spleen, and pancreas within normal limits. Bilateral renal cortical cysts measuring up to 2.2 cm on the left and 1.1 cm on the right. Incidental peripherally calcified splenic artery aneurysm, stable at 1.5 cm. Retroaortic left renal vein. [id number] atherosclerotic calcifications infrarenal abdominal aor ta. Small fatty umbilical hernia. No dilated small bowel, free fluid, or free air. No mesenteric or retroperitoneal lymphadenopathy see n. Normal appendix. Oral contrast progressed to the splenic flexure of the colon. Mild scattered stool. No pericolonic inflammatory change. Bladder partially distended. Patient is status post prostatectomy. There is a 1.4 similar round lesio n along the right pelvic sidewall, suspected tiny lymphocele in the setting of prior surgery. Otherwi se, no abnormal fluid collection or lymphadenopathy otherwise seen in the pelvis. Slightly patulous r ight internal canal is similar. Bones: Mild degenerative change at the hips. 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 Moderate to severe degenerative disc disease L4-L5. Grade 1 anterolisthesis L4-L 5 and grade 1 retrolisthesis L3-L4. Possible severe focal spinal canal stenosis L4-L5. Severe disc/en dplate degenerative change also present T12-L1. IMPRESSION: 1. A 1.5 CM PERIPHERALLY CALCIFIED SPLENIC ARTERY ANEURYSM REMAINS UNCHANGED. 2. SMALL HIATAL HERNIA REDEMONSTRATED. 3. PUNCTATE 4 MM GALLSTONE. 4. A 1.4 CM ROUND LESION ALONG THE RIGHT PELVIC SIDEWALL. IN THE SETTING OF PREVIOUS LYMPH NODE DISSE CTION, A SMALL LYMPHOCELE IS FAVORED. CORRELATE WITH PSA VALUES AND REASSESS AT SHORT INTERVAL CT FOL LOW-UP. 5. STATUS POST PROSTATECTOMY. 6. SPONDYLOTIC CHANGE IN THE LUMBAR SPINE WITH POSSIBLE SEVERE SPINAL CANAL STENOSIS AT L4-L5. [facility], , 11/09/2024 1:30 PM
== END | disposition home or self-care (01) ==
LOC: RADCTMAIN 10:10
PROVIDERS: ATTEND Urology
DX: C61 Malignant neoplasm of prostate (principal); I72.8 Aneurysm of other specified arteries; K44.9 Diaphragmatic hernia without obstruction or gangrene; K80.20 Calculus of gallbladder without cholecystitis without obstruction; M47.816 Spondylosis without myelopathy or radiculopathy, lumbar region; Z87.442 Personal history of urinary calculi; Z85.46 Personal history of malignant neoplasm of prostate; Z90.79 Acquired absence of other genital organ(s)
CPT/HCPCS: 82565; 84520; 74178; 36415; Q9967

== ENCOUNTER 2025-04-01 12:56 | Day surgery (SDC) | payer MEDICARE ==
[2025-03-31 10:32] VITALS: BMI 26.4
[2025-04-01] MEDS ORDERED: LACTATED RINGERS 1,000 ML IV SCH (13:42)
[2025-04-01] MEDS: IV FLUID CONTINUATION 1,000 ML IV ONE ×2 (13:45→14:41)
[2025-04-01 14:07] VITALS: TEMP 98
[2025-04-01] MEDS ORDERED: LIDOCAINE 2% (PF) 20 MG/ML 5 ML VIAL ONE (14:42)
[2025-04-01] MEDS ORDERED: PROPOFOL 10 MG/ML 20 ML VIAL IV ONE (14:42)
--- NOTE | 2025-04-01 14:56 | P.PCN ---
Date of Procedure: 04/01/25 Procedure(s) Performed: BRIEF HISTORY: Patient is a 75-year-old, pleasant, male scheduled up anoscopy as a part evaluation of intermittent dysphagia to solids for the last few years duration.. He also has longstanding history of GERD and is on omeprazole 20 mg daily. PROCEDURE PERFORMED: Esophagogastroduodenoscopy with biopsy. PREOPERATIVE DIAGNOSIS: Intermittent dysphagia to solids. IV sedation per anesthesia. PROCEDURE: After informed consent was obtained, the patient was brought into the endoscopy unit. IV sedation was administered by Anesthesia under continuous monitoring. Initially the Olympus GIF-140 video endoscope was inserted into the mouth. Esophagus intubated without any difficulty. It was gradually advanced into the stomach and duodenum and carefully examined. The bulb and the second part of the duodenum appeared normal. The scope at this time was withdrawn to the stomach, adequately insufflated with air, and upon careful examination, mucosa of the antrum, body, cardia and the fundus appeared normal. The scope was then withdrawn into the esophagus. The GE junction was located at 39 cm from the incisors. Small hiatal hernia noted. The esophagus appeared normal. There were no erosions or ulcerations seen. The proximal cervical esophagus was carefully examined and there was no evidence of cricopharyngeal dysfunction or Zenker's diverticulum identified. Biopsies were done from mid and distal esophagus and the patient tolerated the procedure well. IMPRESSION: 1. Normal-appearing esophagus with no evidence of esophagitis or esophageal stricture. 2. Small hiatal hernia 3. No evidence of Zenker's diverticulum. RECOMMENDATIONS: The findings of this examination were discussed with the patient as well as his family. He was advised to follow-up with the biopsy results. Continue with soft foods.. Continue with omeprazole 20 mg daily and follow antireflux measures. Follow-up in the office in 2 to 3 weeks.
[2025-04-01 15:16] VITALS: BP 114/73; PULSE 56; RESP 16
== END 2025-04-01 15:29 | disposition home or self-care (01) ==
LOC: ORWHC2ENDO 12:56
PROVIDERS: ATTEND Internal Medicine Gastroenterology
DX: K21.00 Gastro-esophageal reflux disease with esophagitis, without bleeding (principal); K44.9 Diaphragmatic hernia without obstruction or gangrene; C61 Malignant neoplasm of prostate; D72.10 Eosinophilia, unspecified; I25.10 Atherosclerotic heart disease of native coronary artery without angina pectoris; I25.2 Old myocardial infarction; Z79.02 Long term (current) use of antithrombotics/antiplatelets; Z79.82 Long term (current) use of aspirin; Z79.899 Other long term (current) drug therapy
CPT/HCPCS: 88305; 43239; J2704; J2003